=== PATIENT | female | born 1990 | race African-American/Black ===

== ENCOUNTER 2023-06-17 18:48 | Emergency (ER) | payer BC, OTHER ==
[~2023-06-17] VITALS: Ht 165.1 cm; Wt 59.0 kg
[2023-06-17 20:28] VITALS: BP 130/83; TEMP 98.2; O2SAT 98
[2023-06-17] MEDS ORDERED: NEOM1OIN15 TP (20:46)
== END 2023-06-17 21:29 | disposition home or self-care (01) ==
LOC: ER 18:48
DX: T24.201A Burn of second degree of unspecified site of right lower limb, except ankle and foot, initial encounter (principal); Z79.899 Other long term (current) drug therapy; X08.8XXA Exposure to other specified smoke, fire and flames, initial encounter; Y93.89 Activity, other specified; Y92.89 Other specified places as the place of occurrence of the external cause; Y99.8 Other external cause status